=== PATIENT | female | born 1990 | race Caucasian/White ===

== ENCOUNTER 2017-09-26 16:50 | Emergency (ER) | payer OTHER ==
[2017-09-26 16:56] VITALS: BP 143/82; PULSE 83; TEMP 98.5; BMI 26.6
--- NOTE | 2017-09-26 17:20 | PDOC ---
History of Present Illness <Tejinder Salazar - Last Filed: 09/26/17 18:07> - History of Present Illness Initial Comments: Previously healthy 27 year old female presenting s/p nose trauma. She was running to vomit, currently menstruating, and slipped then hit her nose on the toilet seat. Denies LOC , other head trauma, or obvious abrasion/ lacerations but felt great pain over her nose, followed by swelling and moderate bleeding from her nose. Denies headache, chest pain, dizziness, visual symptoms, photophobia, loss of balance or other symptoms. 09/26/17 17:20 <Zi Alvarez - Last Filed: 09/26/17 18:42> - General Chief Complaint: Injury Stated Complaint: NOSE INJURY Time Seen by Provider: 09/26/17 16:55 Past History <Tejinder Salazar - Last Filed: 09/26/17 18:07> - Past Medical History COPD: No - Suicide/Smoking/Psychosocial Hx Smoking History: Never smoked Information on smoking cessation initiated: No Hx Alcohol Use: (occasional) <Zi Alvarez - Last Filed: 09/26/17 18:42> - Past Medical History Allergies/Adverse Reactions: Allergies Allergy/AdvReac Type Severity Reaction Status Date / Time No Known Allergies Allergy Verified 09/26/17 16:51 Home Medications: Ambulatory Orders Cetirizine HCl/Pseudoephedrine [Zyrtec-D Tablet] 1 each PO BID #14 tab.er.12h Ibuprofen [Motrin -] 600 mg PO TID #21 tablet 09/26/17 Review of Systems - Review of Systems Constitutional: No: Chills, Diaphoresis, Fever HEENTM: Yes: Tearing. No: Blurred Vision Respiratory: No: Cough, Orthopnea, Shortness of Breath, Wheezing Cardiac (ROS): No: Chest Pain, Irregular Heart Rate, Chest Tightness ABD/GI: Yes: Nausea, Vomiting. No: Diarrhea : No: Burning, Dysuria, Discharge Musculoskeletal: No: Joint Pain, Muscle Pain Integumentary: Yes: Bruising, Change in Color, Erythema Neurological: No: Headache, Numbness, Paresthesia Psychiatric: No: Anxiety, Depression <Zi Alvarez - Last Filed: 09/26/17 18:42> *Physical Exam - Vital Signs Last Vital Signs Temp Pulse Resp BP Pulse Ox 98.5 F 83 18 143/82 100 09/26/17 16:50 09/26/17 16:50 09/26/17 16:50 09/26/17 16:50 09/26/17 16:50 <Moucha,Remus S - Last Filed: 09/26/17 18:07> - Vital Signs Last Vital Signs Temp Pulse Resp BP Pulse Ox 98.5 F 83 18 143/82 100 09/26/17 16:50 09/26/17 16:50 09/26/17 16:50 09/26/17 16:50 09/26/17 16:50 - Physical Exam General Appearance: Yes: Nourished, Appropriately Dressed. No: Apparent Distress HEENT: positive: EOMI, TODD, Normal Voice, Symmetrical, Pharynx Normal. negative: Normal ENT Inspection (Swollen nose with echymoses over nasal bridge and slight rightward deviation of nasal distal nasal septum. Interior of the nairs signficnat for blood i thel ft nare with swellign of the septum concernign for septal hematoma.) Neck: positive: Trachea midline, Normal Thyroid, Supple. negative: Tender, Rigid Respiratory/Chest: positive: Lungs Clear, Normal Breath Sounds. negative: Chest Tender, Respiratory Distress Cardiovascular: positive: Regular Rhythm, Regular Rate Gastrointestinal/Abdominal: positive: Normal Bowel Sounds, Flat, Soft. negative : Tender Musculoskeletal: positive: Normal Inspection Extremity: positive: Normal Capillary Refill, Normal Inspection, Normal Range of Motion. negative: Tender Integumentary: positive: Dry, Warm. negative: Normal Color (Except as noted in HEENT section) Neurologic: positive: Fully Oriented, Alert, Normal Mood/Affect, Normal Response <Zi Alvarez - Last Filed: 09/26/17 18:42> ED Treatment Course - ADDITIONAL ORDERS Additional order review: Laboratory Results 09/26/17 17:27 Urine HCG, Qual Negative <Moucha,Remus S - Last Filed: 09/26/17 18:07> Medical Decision Making - Medical Decision Making Patient upreg negative. Nasal bone film demonstrating distal septal fracture with slight displacement toward the right. Sent home with instructions to follow up with Dr. Haynes or Dr. Schumacher. Given an ice bag as well. 09/26/17 18:39 <AntonioGaylaamari - Last Filed: 09/26/17 18:42> *DC/Admit/Observation/Transfer <Tejinder Salazar - Last Filed: 09/26/17 18:07> <Remedios Alvarezbing - Last Filed: 09/26/17 18:42> Diagnosis at time of Disposition: Nasal bones, closed fracture Qualifiers: Encounter type: initial encounter Qualified Code(s): S02.2XXA - Fracture of nasal bones, initial encounter for closed fracture - Discharge Dispostion Disposition: HOME Condition at time of disposition: Stable - Prescriptions Prescriptions: Cetirizine HCl/Pseudoephedrine [Zyrtec-D Tablet] 1 each PO BID #14 tab.er.12h Ibuprofen [Motrin -] 600 mg PO TID #21 tablet - Referrals Referrals: Xiang Maurer MD [Staff Physician] - Kelvin Haynes MD [Staff Physician] - - Patient Instructions Printed Discharge Instructions: DI for Nose Fracture - Post Discharge Activity Forms/Work/School Notes: Back to Work
--- NOTE | 2017-09-26 18:09 | PDOC ---
Attending Attestation - Resident Resident Name: Zi Alvarez <Tejinder Salazar - Last Filed: 09/26/17 18:27> - HPI HPI: 09/26/17 18:33 The patient is a 27 year old female who arrives to the ED s/p nose trauma after hitting her face on the toilet seat. Patient states she was running to the bathroom to vomit, slipped and hit her nose. She denies any LOC, visual changes , or headache but reports pain to the area. Denies any recent illness, fevers, or chills. - Physicial Exam PE: 09/26/17 18:36 GENERAL: Awake, alert, and fully oriented, in no acute distress HEAD: No signs of trauma EYES: PERRLA, EOMI, sclera anicteric, conjunctiva clear ENT: Nasal swelling with ecchymosis and deformity. Auricles normal inspection, hearing grossly normal,oropharynx clear without exudates. Moist mucosa NECK: Normal ROM, supple, no lymphadenopathy, JVD, or masses EXTREMITIES: Normal range of motion, no edema. No clubbing or cyanosis. No cords, erythema, or tenderness NEUROLOGICAL: Cranial nerves II through XII grossly intact. Normal speech, normal gait SKIN: Warm, Dry, normal turgor, no rashes or lesions noted. - Medical Decision Making 09/26/17 18:37 Documentation prepared by Christiana Morales, acting as medical insurance claims specialist for Tejinder Salazar MD. <Christiana Morales - Last Filed: 09/26/17 18:37> Discharge Disposition - Discharge Dispostion Admit: No <Tejinder Salazar - Last Filed: 09/26/17 18:27> <Christiana Morales - Last Filed: 09/26/17 18:37> - Diagnosis Nasal bones, closed fracture Qualifiers: Encounter type: initial encounter Qualified Code(s): S02.2XXA - Fracture of nasal bones, initial encounter for closed fracture - Discharge Dispostion Disposition: HOME Condition at time of disposition: Stable - Prescriptions Prescriptions: Cetirizine HCl/Pseudoephedrine [Zyrtec-D Tablet] 1 each PO BID #14 tab.er.12h Ibuprofen [Motrin -] 600 mg PO TID #21 tablet - Referrals Referrals: Kelvin Haynes MD [Staff Physician] - Xiang Maurer MD [Staff Physician] - - Patient Instructions Printed Discharge Instructions: DI for Nose Fracture - Post Discharge Activity Work/School Note: Back to Work
== END 2017-09-26 18:35 | disposition home or self-care (01) ==
LOC: FER 16:50
DX: S02.2XXA Fracture of nasal bones, initial encounter for closed fracture (principal); W22.09XA Striking against other stationary object, initial encounter; Y93.89 Activity, other specified; Y92.002 Bathroom of unspecified non-institutional (private) residence as the place of occurrence of the external cause
CPT/HCPCS: 70160-TC-FY; 84703; 99283-25